=== PATIENT | female | born 1945 | race Caucasian/White ===

== ENCOUNTER 2018-04-16 17:10 | Emergency (ER) | payer MEDICARE ==
[~2018-04-16 17:10] MED LIST: Iopamidol 370 76% 100 ML VIAL ONE
[2018-04-16 18:05] LABS: #Monocytes 0.5 thou/uL (0.11-0.59); #Neutrophils 3.9 thou/uL (1.40-6.50); %Basophils 0.7 % (0.0-1.0); %Eosinophils 0.9 % (0.0-10.0); %Lymphocytes 17.6 % (21.0-51.0); %Monocytes 8.6 % (0.0-10.0); %Neutrophils 72.2 % (42.0-75.0); Mean Corpuscular HGB CONC 29.7 g/dL (32.0-36.0); Mean Corpuscular Hemoglobin 23.4 pg (27.0-31.0); Mean Corpuscular Volume 78.7 fl (81.0-99.0); Mean Platelet Volume 9.3 fL (7.4-10.4); Platelet Count 272 thou/uL (130-400); RBC Distribution Width 15.1 % (11.5-14.5); Red Blood Cell (RBC) Count 4.29 mill/uL (4.20-5.40); White Blood Cell (WBC) Count 5.4 thou/uL (4.8-10.8)
[2018-04-16 18:06] LABS: ALT (SGPT) 16 U/L (8-55); AST (SGOT) 17 U/L (5-34); Albumin 4.2 g/dL (3.4-4.8); Alkaline Phosphatase 146 U/L (40-150); Anion Gap 15 mmol/L (10-20); BUN (Urea Nitrogen) 8 mg/dL (9.8-20.1); Bilirubin, Total 0.8 mg/dL (0.2-1.2); Calc. Creatinine Clearance 0 mL/min (70-130); Calcium 9.8 mg/dL (7.8-10.44); Carbon Dioxide 21 mmol/L (23-31); Chloride 109 mmol/L (98-107); Estimated GFR-MDRD 69; Globulin 2.3 g/dL (2.4-3.5); Glucose 104 mg/dL (83-110); Potassium 3.4 mmol/L (3.5-5.1); Protein, Total 6.5 g/dL (6.0-8.3); Sodium 142 mmol/L (136-145)
[2018-04-16 18:08] LABS: CKMB 1.5 ng/mL (0-6.6); Troponin I Less than 0.010 ng/mL (< 0.028)
--- NOTE | 2018-04-16 18:18 | RAD ---
SINGLE VIEW OF THE CHEST: 04/16/18 COMPARISON: None. HISTORY: Shortness of breath and dyspnea that has gotten worse. FINDINGS: Single view of the chest shows a normal sized cardiomediastinal silhouette. There is no evidence of c onsolidation, mass, or pleural effusion. The bones are unremarkable. IMPRESSION: No evidence of acute cardiopulmonary disease. POS: [facility]
[2018-04-16] MEDS ORDERED: Lorazepam 2 MG/ML VIAL ONE (18:41)
[2018-04-16] MEDS ORDERED: cloNIDine 0.1 MG TAB ONE (20:15)
[2018-04-16 20:54] LABS: CKMB 1.4 ng/mL (0-6.6); Troponin I 0.014 ng/mL (< 0.028)
--- NOTE | 2018-04-16 21:20 | CT ---
CTA OF THE CHEST WITH CONTRAST 04/16/18 COMPARISON: None. HISTORY: Shortness of breath since this morning that has gotten worse. Dyspnea. TECHNIQUE: Multiple contiguous axial images were obtained in a CTA of the chest with contrast per pulmonary embo lism protocol. 3D oblique MIP reformats and direct coronal reformats were performed. FINDINGS: The pulmonary arteries are well opacified without filling defects to suggest pulmonary emboli. The he art is normal in size. There are calcifications in the coronary arteries. No hilar or mediastinal lym phadenopathy are seen. No pneumothorax or pleural effusion are seen. No focal infiltrates are seen in the lungs. No suspicio us pulmonary nodules are present. Degenerative changes are seen in the spine. There is a remote healed left rib fracture. The chest wal l soft tissues are unremarkable. The patient has a 3.0 cm right adrenal mass. The other visualized de los santos bdiaphragmatic structures are unremarkable. IMPRESSION: 1. No evidence of pulmonary thromboembolism. 2. Nonspecific right adrenal mass. A CT of the abdomen per adrenal mass protocol is recommended on a nonemergent outpatient basis. POS: [facility]
== END 2018-04-16 21:32 | disposition home or self-care (01) ==
LOC: NAV ERS 17:10
DX: I48.91 Unspecified atrial fibrillation (principal); F41.9 Anxiety disorder, unspecified; I10 Essential (primary) hypertension; S80.10XA Contusion of unspecified lower leg, initial encounter; E11.9 Type 2 diabetes mellitus without complications; E78.5 Hyperlipidemia, unspecified; Z85.3 Personal history of malignant neoplasm of breast; Z79.84 Long term (current) use of oral hypoglycemic drugs; Z79.899 Other long term (current) drug therapy; Z79.01 Long term (current) use of anticoagulants; Z87.891 Personal history of nicotine dependence; X58.XXXA Exposure to other specified factors, initial encounter
CPT/HCPCS: 71045; 71275; 80053; 82553; 83880; 84484; 85025; 85379; 93005; 96374; 96375; J2060